=== PATIENT | male | born 1965 | race Two or more races ===

== ENCOUNTER 2021-09-16 08:00 | Outpatient (CLI) | payer OTHER | END 2021-09-16 08:30 | disposition home or self-care (01) | LOC: PPH VACUNA 08:00 | PROVIDERS: ATTEND Emergency Medicine Pediatric Emergency Medicine | DX: Z23 Encounter for immunization (principal) ==

== ENCOUNTER 2022-03-08 09:48 | Outpatient (CLI) | payer OTHER | END 2022-03-08 09:58 | disposition home or self-care (01) | LOC: PPH VACUNA 09:48 | PROVIDERS: ATTEND Emergency Medicine Pediatric Emergency Medicine | DX: Z23 Encounter for immunization (principal) ==

== ENCOUNTER → 2023-08-29 | Emergency (ER) | payer OTHER ==
[~2023-08-29] VITALS: Ht 160 cm; Wt 72.6 kg
[~2023-08-29] MED LIST: ASPIRIN REGIMEN81 MG PO; COZAAR50 MG PO; ENALAPRILAT DIHYDRATE 1.25 MG/ML VIAL IV STA
[2023-08-29 11:38] LABS: HEMATOCRIT 42.1 % (39.0-48.0); HEMOGLOBIN 14.6 g/dL (13-16.00); MEAN CORPUSCULAR HEMOGLOBIN 33.5 pg (27.00-32.0); MEAN CORPUSCULAR HGB CONC 34.6 g/dl (32.0-36.0); PLATELET COUNT 242 K/uL (150-450); RED BLOOD COUNT 4.34 M/uL (4.00-6.00); RED CELL DISTRIBUTION WIDTH 14.3 % (11.5-14.5)
[2023-08-29 12:09] LABS: CALCIUM 9.7 mg/dL (8.5-10.1); CREATININE SERUM 1.07 mg/dL (0.70-1.30); GFR 70.49; POTASSIUM 3.72 mEq/L (3.5-5.1)
== END | disposition left against medical advice (07) ==
LOC: ER 10:02
PROVIDERS: General Practice
DX: I10 Essential (primary) hypertension (principal)